=== PATIENT | male | born 1975 | race Caucasian/White ===

== ENCOUNTER 2025-04-14 11:20 | Emergency (ER) | payer OTHER, SELFPAY ==
[2025-04-14 11:25] VITALS: BP 149/94; PULSE 86; RESP 13; TEMP 37; O2SAT 97; BMI 29.2
--- NOTE | 2025-04-14 14:50 | ED_ITS ---
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 He has not noticed other adenopathy has not been losing weight. Is currently on day 3 of antibiotics (augmentin) but has not noticed a significant change. No fevers, no unexplained weight loss Related Data Previous Rx's ?Medication ?Instructions ?Recorded clindamycin HCl 300 mg capsule 300 mg PO TID #30 caps 04/14/25 clindamycin HCl 300 mg capsule 300 mg PO TID 7 days #2 1 caps 04/14/25 Allergies Allergy/AdvReac Type Severity Reaction Status Date / Time No Known Drug Allergies Allergy Unverified 04/14/25 11:24 Review of Systems Review of Systems Narrative: Pertinent positive and negative findings as per HPI Patient History Medical History Hypertension Social History Smoking Status: Unknown if ever smoked Smoking Status: Unknown if ever smoked Exam Initial Vital Signs Initial Vital Signs: Vital Signs Temperature 98.6 F 04/14/25 11:25 Pulse Rate 86 04/14/25 11:25 Respiratory Rate 13 04/14/25 11:25 Blood Pressure 149/94 H 04/14/25 11:25 Pulse Oximetry 97 04/14/25 11:25 Oxygen Delivery Method Room Air 04/14/25 11:25 General: Healthy appearing, in no acute distress. Able to give a complete and coherent history. Well-nourished well-developed HEENT: Moist mucous membranes, normal sclera with reactive pupils, a 4 x 5 cm soft lymph node in the right anterior cervical chain. No associated warmth or erythema. No other significant adenopathy appreciated neck Respiratory: Lungs are clear to auscultation, no wheezing no rales no rhonchi. Full and symmetrical air movement Chest: No axillary or supraclavicular adenopathy appreciated Cardiac: Regular rate and rhythm no murmurs no bruits Abdomen: Soft, nontender, no obvious splenomegaly, no flank pain Skin: Warm and dry, no rashes Neurologic: Grossly neurologically intact with no obvious asymmetries or abnormalities Extremities: No trauma, well perfused Psych: Cooperative, appropriate insight and affect Course Orders Ordered: ED Orders 04/14/25 14:53 US soft tissue head and neck Stat 04/14/25 14:57 Complete Blood Count AUTO DIFF Stat Comprehensive Metabolic Panel Stat Vital Signs Vital signs: Vital Signs - 8 hr 04/14/25 11:25 Temperature 98.6 F Pulse Rate 86 Respiratory Rate 13 Blood Pressure 149/94 H Pulse Oximetry 97 Oxygen Delivery Method Room Air MDM - Neck Pain/Injury MDM Narrative Medical decision making narrative: Discussion: 49-year-old gentleman minimal past medical history with swollen area to the right side of the anterior neck for little over 2 weeks. Has been on antibiotics for the last 3 days without significant change. He has had no fevers or significant constitutional symptoms Comes into the ER for further evaluation. Ultrasound shows: PROCEDURE: US SOFT TISSUE HEAD AND NECK INDICATIONS: right side anterior cervical adenopathy TECHNIQUE: Real-time scanning was performed of the neck region of interest, with image documentation. COMPARISON: None. FINDINGS: On the right, there is a clearly abnormal soft tissue nodule at the area of interest measuring 3.9 x 2.2 x 3.9 cm IMPRESSION: Abnormal right-sided lymphadenopathy. Advise ultrasound-guided percutaneous biopsy Approved by: Royal Zimmerman M.D. on 04/14/2025 at 15:26 Labs show normal CBC Chemistries are reassuring At this point I have added clindamycin to his current Augmentin. If the mass is still present in 2 weeks he does need to have an ultrasound guided percutaneous biopsy of this node for more definitive diagnosis. 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 Prescription for clindamycin as electronically sent to [facility] Copy of this note along with all labs and studies we will be provided Patient is safe for discharge Discharge Plan Departure Patient Disposition: Home Clinical Impression: Lymph node enlargement Instructions: DI for Lymphadenopathy Activity Restrictions/Additional Instructions: Thank you for coming in today The ultrasound showed that the mass in your neck is a lymph node. It looks like that node is infected. Antibiotics are entirely appropriate. Please continue the 1 that you have already started, that is the appropriate 1st choice, I have added clindamycin to this. If it is not better within 2-3 weeks, you may need to have it biopsied to make sure that this is not a cancer. That is a small possibility but a possibility that we do not want to miss A prescription was electronically transmitted to [facility] in [place] I have filled out your summary medical report, you are clear to return to work I will include a full copy of my note for you to share with the medical division Prescriptions: New clindamycin HCl 300 mg capsule 300 mg PO TID 7 Days Qty: 21 0RF clindamycin HCl 300 mg capsule 300 mg PO TID Qty: 30 0RF Referrals: Miscellaneous,Doctor, MD [Primary Care Provider, Medical] Stand Alone Forms: Patient Portal/API
--- NOTE | 2025-04-14 14:53 | DI.US.S_ITS ---
PROCEDURE: US SOFT TISSUE HEAD AND NECK INDICATIONS: right side anterior cervical adenopathy TECHNIQUE: Real-time scanning was performed of the neck region of interest, with image documentation. COMPARISON: None. FINDINGS: On the right, there is a clearly abnormal soft tissue nodule at the area of interest measuring 3.9 x 2.2 x 3.9 cm IMPRESSION: Abnormal right-sided lymphadenopathy. Advise ultrasound-guided percutaneous biopsy Approved by: Royal Zimmerman M.D. on 04/14/2025 at 15:26
[2025-04-14 16:25] LABS: Add Manual Diff / Slide Review NO; Hematocrit 45.8 % (41-53); Hemoglobin 15.5 g/dL (13.5-17.5); Lymphocytes Absolute Auto 2400 /uL (1100-4500); Mean Corpuscular HGB Conc 33.9 % (30-36); Mean Corpuscular Hemoglobin 30.5 PG (26-34); Mean Corpuscular Volume 89.8 fL (80-100); Platelet Count 327 X10^3/uL (150-400)
[2025-04-14 16:41] LABS: Alanine Aminotransferase 20 IU/L (<50); Albumin 5.2 g/dL (3.5-5.0); Albumin Globulin Ratio 1.5 (1.0-2.8); Alkaline Phosphatase 58 U/L (38-126); Blood Urea Nitrogen 14 mg/dL (9-20); Calcium 9.5 mg/dL (8.4-10.2); Carbon Dioxide 25 mmol/L (22-32); Chloride 102 mmol/L (98-107); Estimated Glomerular Filt Rate > 60 mL/min (>60); Globulin 3.5 g/dL (1.7-4.1); Glucose 89 mg/dL (70-99); HEMOLYSIS < 15 (0-50); Potassium 4.4 mmol/L (3.4-5.1); Sodium 140 mmol/L (137-145); Total Protein 8.7 g/dL (6.3-8.2)
[2025-04-14 18:08] VITALS: BP 136/70; PULSE 88; RESP 14; O2SAT 98
[2025-04-14] MEDS: CLINDAMYCIN 150 MG CAPSULE 300 MG PO (18:09)
== END 2025-04-14 18:11 | disposition home or self-care (01) ==
PROVIDERS: Emergency Provider Emergency Medicine
DX: R59.0 Localized enlarged lymph nodes (principal)
CPT/HCPCS: 76536; 80053; 85025; 99283; 99284